=== PATIENT | male | born 1935 | race Hispanic/Latino ===

== ENCOUNTER 2017-11-25 22:39 | Emergency (ER) | payer OTHER, MEDICARE ==
[~2017-11-25 22:39] MED LIST: ACET1TAB25 PO; AMIO400T4 PO; METO50TA18 PO; RIVA20TA PO; SIMV40TA59 PO; THYR15TA PO; VALS1TAB79 PO
[2017-11-25] MEDS ORDERED: GUAIFENESIN-DM 200/20 MG 10 ML ONE (23:25)
[2017-11-25] MEDS ORDERED: SODIUM CHLORIDE 0.9% 1000ML 1,000 ML IV ONE (23:25)
[2017-11-25 23:31] LABS: BASOPHILS % (AUTO) 0.4 % (0.0-5.0); EOSINOPHILS % (AUTO) 0.5 % (0.0-8.0); HEMATOCRIT 36.5 % (42-54); LYMPHOCYTES % (AUTO) 8.2 % (21.0-51.0); MEAN CORPUSCULAR HEMOGLOBIN 30.7 pg (27.0-33.0); MEAN CORPUSCULAR HGB CONC 34.3 g/dL (32.0-36.0); MEAN CORPUSCULAR VOLUME 89.3 fL (79-99); MONOCYTES % (AUTO) 11.2 % (3.0-13.0); NEUTROPHILS % (AUTO) 79.7 % (40.0-77.0); PLATELET COUNT (AUTO) 186 K/uL (130-400); RED BLOOD CELL COUNT(AUTO) 4.08 MIL/uL (4.50-6.20); WHITE BLOOD COUNT (AUTO) 9.8 K/uL (4.8-10.8)
[2017-11-25 23:45] LABS: CREATININE 1.3 mg/dL (0.5-1.5); POTASSIUM 3.8 mmol/L (3.5-5.1)
[2017-11-25 23:56] LABS: ALBUMIN 3.1 g/dL (3.5-5.0); BILIRUBIN,TOTAL 0.9 mg/dL (0.2-1.0); TOTAL PROTEIN, SERUM 7.7 g/dL (6.0-8.3)
[2017-11-26] MEDS ORDERED: ALBUTEROL SULFATE 0.083% 2.5 MG/3 ML INH IH ONE (00:06)
[2017-11-26 00:18] LABS: THYROID STIMULATING HORMONE 3.77 uIU/mL (0.36-3.74)
== END 2017-11-26 01:48 | disposition home or self-care (01) ==
LOC: EDH 22:39
DX: R05 Cough (principal); R53.81 Other malaise; R53.83 Other fatigue; I48.92 Unspecified atrial flutter; E78.5 Hyperlipidemia, unspecified; E07.9 Disorder of thyroid, unspecified; I10 Essential (primary) hypertension; Z79.01 Long term (current) use of anticoagulants; Z87.891 Personal history of nicotine dependence
CPT/HCPCS: 36415; 71045; 80053; 82550; 83605; 83735; 83880; 84443; 84484; 85025; 87040 ×2; 87804 ×2; 93005; 94640; 96360; 96361; 99285; J7030

== ENCOUNTER → 2018-03-13 | Outpatient (CLI) | payer OTHER, MEDICARE | END | disposition home or self-care (01) | LOC: SHCH 13:58 | PROVIDERS: ATTEND Internal Medicine Cardiovascular Disease | DX: I37.1 Nonrheumatic pulmonary valve insufficiency (principal); I35.8 Other nonrheumatic aortic valve disorders | CPT/HCPCS: 93306 ==

== ENCOUNTER → 2018-04-03 | Outpatient (CLI) | payer OTHER, MEDICARE | END | disposition home or self-care (01) | LOC: SHCH 08:11 | PROVIDERS: ATTEND Internal Medicine Cardiovascular Disease | DX: I65.23 Occlusion and stenosis of bilateral carotid arteries (principal); I71.4 Abdominal aortic aneurysm, without rupture; R09.89 Other specified symptoms and signs involving the circulatory and respiratory systems | CPT/HCPCS: 93880; 93978 ==

== ENCOUNTER → 2019-05-14 | Outpatient (CLI) | payer OTHER, MEDICARE | END | disposition home or self-care (01) | LOC: RAH 11:23 | PROVIDERS: ATTEND Family Medicine | DX: M79.605 Pain in left leg (principal); M79.89 Other specified soft tissue disorders | CPT/HCPCS: 93971 ==

== ENCOUNTER → 2020-01-22 | Outpatient (CLI) | payer OTHER, MEDICARE ==
[~2020-01-22] MED LIST changes: -ACET1TAB25 PO; +AMOX-429 PO; +DONE5TAB33 PO; +FINA5TAB41 PO; +FURO20TA4 PO; +IPRA3AMP24 IH; +LEVO100T12 PO; +LISI-617 PO; +METO25TA6 PO; -METO50TA18 PO; +ROSU5TAB12 PO; -SIMV40TA59 PO; -THYR15TA PO; -VALS1TAB79 PO
== END | disposition home or self-care (01) ==
LOC: SHCH 08:16
PROVIDERS: ATTEND Internal Medicine Cardiovascular Disease
DX: R00.1 Bradycardia, unspecified (principal); R09.89 Other specified symptoms and signs involving the circulatory and respiratory systems; I71.4 Abdominal aortic aneurysm, without rupture
CPT/HCPCS: 93306; 93880; 93978

== ENCOUNTER 2020-01-24 21:36 | Inpatient (IN) | payer OTHER, MEDICARE ==
[~2020-01-24] VITALS: Ht 160 cm; Wt 58.0 kg
[2020-01-24 22:14] LABS: BASOPHILS % (AUTO) 0.1 % (0.0-5.0); EOSINOPHILS % (AUTO) 1.8 % (0.0-8.0); HEMATOCRIT 39.4 % (42-54); LYMPHOCYTES % (AUTO) 12.7 % (21.0-51.0); MEAN CORPUSCULAR HEMOGLOBIN 31.5 pg (27.0-33.0); MEAN CORPUSCULAR VOLUME 95.4 fL (79-99); MONOCYTES % (AUTO) 7.2 % (3.0-13.0); NEUTROPHILS % (AUTO) 77.9 % (40.0-77.0); PLATELET COUNT (AUTO) 145 K/uL (130-400); RED BLOOD CELL COUNT(AUTO) 4.13 MIL/uL (4.50-6.20); RED CELL DISTRIBUTION WIDTH 14.1 % (11.0-15.5); WHITE BLOOD COUNT (AUTO) 7.4 K/uL (4.8-10.8)
[2020-01-24 22:39] LABS: INR 1.71 (0.85-1.15); PARTIAL THROMBOPLASTIN TIME 39.9 SEC (26.3-35.5); PROTHROMBIN TIME 18.1 SEC (9.6-11.6)
[2020-01-24 22:41] LABS: B-TYPE NATRIURETIC PEPTIDE 1450 pg/mL (0-100)
[2020-01-24 22:46] LABS: ALBUMIN 3.1 g/dL (3.5-5.0); BILIRUBIN,TOTAL 0.7 mg/dL (0.2-1.0); CREATININE 1.2 mg/dL (0.5-1.5); TOTAL PROTEIN, SERUM 6.4 g/dL (6.0-8.3)
[2020-01-24 22:58] LABS: POTASSIUM 2.7 mmol/L (3.5-5.1)
[2020-01-24] MEDS ORDERED: POTASSIUM CHLORIDE 20 MEQ ERTAB PO ONE (23:13)
[2020-01-25 04:41] LABS: BASOPHILS % (AUTO) 0.1 % (0.0-5.0); HEMATOCRIT 40.4 % (42-54); LYMPHOCYTES % (AUTO) 12.7 % (21.0-51.0); MEAN CORPUSCULAR HEMOGLOBIN 31.6 pg (27.0-33.0); MEAN CORPUSCULAR HGB CONC 33.4 g/dL (32.0-36.0); MEAN CORPUSCULAR VOLUME 94.6 fL (79-99); MONOCYTES % (AUTO) 8.1 % (3.0-13.0); NEUTROPHILS % (AUTO) 76.8 % (40.0-77.0); PLATELET COUNT (AUTO) 132 K/uL (130-400); RED BLOOD CELL COUNT(AUTO) 4.27 MIL/uL (4.50-6.20); RED CELL DISTRIBUTION WIDTH 14.5 % (11.0-15.5); WHITE BLOOD COUNT (AUTO) 8.9 K/uL (4.8-10.8)
[2020-01-25 04:57] LABS: INR 1.45 (0.85-1.15); PARTIAL THROMBOPLASTIN TIME 36.4 SEC (26.3-35.5); PROTHROMBIN TIME 15.4 SEC (9.6-11.6)
[2020-01-25 06:04] LABS: ALBUMIN 2.9 g/dL (3.5-5.0); BILIRUBIN,TOTAL 0.7 mg/dL (0.2-1.0); CREATININE 1.1 mg/dL (0.5-1.5); MAGNESIUM 1.7 mg/dL (1.80-2.40); PHOSPHORUS 3.1 mg/dL (2.5-4.9); TOTAL PROTEIN, SERUM 6.7 g/dL (6.0-8.3)
[2020-01-25 06:06] LABS: POTASSIUM 2.7 mmol/L (3.5-5.1)
[2020-01-25] MEDS ORDERED: POTASSIUM CHLORIDE 20 MEQ ERTAB PO PRN (06:45)
[2020-01-25] MEDS ORDERED: LIDOCAINE HCL-MPF 1% 2ML VIAL IV PRN (06:45)
[2020-01-25] MEDS ORDERED: POTASSIUM CHLORIDE 20MEQ/100ML 100 ML IV PRN (06:45)
[2020-01-25] MEDS ORDERED: POTASSIUM CHLORIDE 10% ELIXIR 20 MEQ/15 ML UDCUP PO PRN (06:45)
[2020-01-25] MEDS ORDERED: LIDOCAINE HCL-MPF 1% 2ML VIAL ONE ×2 (08:13→15:21)
[2020-01-25] MEDS ORDERED: POTASSIUM CHLORIDE 20MEQ/100ML 100 ML IV ONE ×2 (08:13→15:21)
[2020-01-25] MEDS ORDERED: NITROGLYCERIN 0.4 MG SL TAB SL PRN (08:45)
[2020-01-25] MEDS ORDERED: ONDANSETRON HCL 4 MG/2 ML VIAL IV PRN (08:45)
[2020-01-25] MEDS ORDERED: LACTULOSE 20 GM/30 ML UDCUP PO PRN (08:45)
[2020-01-25] MEDS ORDERED: BENZONATATE 100 MG CAPSULE PO PRN (08:45)
[2020-01-25] MEDS ORDERED: ACETAMINOPHEN-CODEINE 300/30MG TAB PO PRN (08:45)
[2020-01-25] MEDS ORDERED: DEXTROSE 50%-WATER 50 ML DISP.SYRIN IV PRN (08:45)
[2020-01-25] MEDS: CEFTRIAXONE SODIUM 1 GM IV SCH (08:45)
[2020-01-25] MEDS ORDERED: HYDRALAZINE HCL 20 MG/ML VIAL IV PRN (08:45)
[2020-01-25] MEDS ORDERED: GUAIFENESIN-DM 200/20 MG 10 ML PO PRN (08:45)
[2020-01-25] MEDS ORDERED: ACETAMINOPHEN 325 MG TAB PO PRN ×2 (08:45)
[2020-01-25] MEDS ORDERED: DiphenhydrAMINE HCL 50 MG/ML VIAL IV PRN (08:45)
[2020-01-25] MEDS ORDERED: GLUCAGON 1MG KIT 1 MG ML IM PRN (08:45)
[2020-01-25] MEDS ORDERED: MAGNESIUM 2GM PREMIX 50ML 50 ML IV SCH (09:00)
[2020-01-25] MEDS: FUROSEMIDE 10 MG/ML 2ML VIAL IV SCH ×2 (09:00→20:26)
[2020-01-25] MEDS: FAMOTIDINE/PF 20 MG/2 ML VIAL IV SCH (09:00)
[2020-01-25] MEDS: POTASSIUM CHLORIDE 20 MEQ ERTAB PO SCH ×3 (09:00→20:35)
[2020-01-25] MEDS: IPRATROPIUM/ALBUTEROL SULFATE 3 ML SOLUTION IH SCH ×4 (10:00→21:54)
--- NOTE | 2020-01-25 10:18 | NUR ---
US GUIDED RIGHT THORACENTESIS PROCEDURE PERFORMED BY DR. STEVENS, PUNCUTURE SITE RIGHT UPPER POSTERIOR BACK AND PT TOLERATED PROCEDURE WELL. TOTAL REMOVED 1.6 LITERS END OF PROCEDURE AT 1000, CATHETER REMOVED AND VASALINE DRESSING APPLIED. NO BLEEDING NOTED .POST CHEST XRAY TAKEN AND READ BY DR. STEVENS. NO PNEUMOTHORAX SEEN. REPORT GIVEN TO Ravinder HOBSON RN IN ER. PT TRANSFERRED BACK TO ER VIA BED,NO DISTRESS NOTED. PT DENIED ANY PAIN OR DISCOMFORTS. SPECIMEN SEND TO LAB
--- NOTE | 2020-01-25 11:24 | NUR ---
INITIAL SW spoke with patient's daughter, Citlali Noel, [phone]. Patient lives with spouse, Ankita Vance, [phone]. Patient has no home health but does have PHC with [facility] 31 hours a week. DME: BPM, cane, wheelchair, goyo lift. As per daughter, patient requires assistance to complete ADL's and he does not drive. Family assist with transportation. PCP is Dr. Bc Salguero. Pharmacy is [facility] located on [facility] in [place]. DCP is home. Addendum: 01/25/20 at 1127 by MANUEL HERNANDEZ Amended: Links added.
[2020-01-25] MEDS ORDERED: FUROSEMIDE 10 MG/ML 2ML VIAL ONE (11:33)
[2020-01-25] MEDS ORDERED: POTASSIUM CHLORIDE 10% ELIXIR 20 MEQ/15 ML UDCUP ONE (11:33)
[2020-01-25] MEDS ORDERED: CEFTRIAXONE SODIUM 1 GM ONE (11:34)
[2020-01-25] MEDS ORDERED: FAMOTIDINE/PF 20 MG/2 ML VIAL IV ONE (11:34)
[2020-01-25] MEDS ORDERED: BENZONATATE 100 MG CAPSULE PO ONE (11:35)
[2020-01-25] MEDS ORDERED: IPRATROPIUM/ALBUTEROL SULFATE 3 ML SOLUTION IH ONE (13:13)
[2020-01-25 13:20] LABS: SPECIMENTYPE,BODY FLUID PLEURAL
[2020-01-25 13:21] LABS: APPEARANCE BODY FLUID SLIGHTLY CLOUDY (CLEAR); COLOR,BODY FLUID YELLOW (LT YELLOW); TOTAL VOLUME,BODY FLUID 1500 mL
[2020-01-25 13:22] LABS: BODY FLUID RBC 27 /cu. mm.; BODY FLUID WBC 53 /cu. mm.
[2020-01-25 14:16] LABS: BF LYMPHOCYTE 26 %; BF MONOCYTE 55 %
[2020-01-25] MEDS ORDERED: LEVOTHYROXINE 100 MCG TABLET ONE (16:00)
[2020-01-25] MEDS: INSULIN HUMULIN R 100 UNIT/ML 3ML SQ SCH ×2 (16:30→21:00)
[2020-01-25 18:10] VITALS: BP 140/81
[2020-01-25 20:08] VITALS: BP 149/74
[2020-01-25] MEDS ORDERED: ATORVASTATIN CALCIUM 10 MG TABLET PO SCH (21:00)
[2020-01-25] MEDS ORDERED: FINASTERIDE 5 MG TABLET PO SCH (21:00)
[2020-01-25] MEDS ORDERED: DONEPEZIL HCL 5 MG TAB PO SCH (21:00)
[2020-01-25 23:36] VITALS: BP 148/82
[2020-01-26] MEDS: IPRATROPIUM/ALBUTEROL SULFATE 3 ML SOLUTION IH SCH ×4 (02:01→15:18)
[2020-01-26 03:56] VITALS: BP_SYST 149; BP_SYST 168; BP_DIAS 77; BP_DIAS 89
[2020-01-26 04:06] LABS: HEMATOCRIT 39.8 % (42-54); MEAN CORPUSCULAR HEMOGLOBIN 31.8 pg (27.0-33.0); MEAN CORPUSCULAR HGB CONC 32.2 g/dL (32.0-36.0); MEAN CORPUSCULAR VOLUME 98.8 fL (79-99); PLATELET COUNT (AUTO) 118 K/uL (130-400); RED BLOOD CELL COUNT(AUTO) 4.03 MIL/uL (4.50-6.20); RED CELL DISTRIBUTION WIDTH 14.2 % (11.0-15.5); WHITE BLOOD COUNT (AUTO) 7.3 K/uL (4.8-10.8)
[2020-01-26 04:37] LABS: MAGNESIUM 1.7 mg/dL (1.80-2.40); PHOSPHORUS 2.6 mg/dL (2.5-4.9); POTASSIUM 3.8 mmol/L (3.5-5.1)
[2020-01-26] MEDS: INSULIN HUMULIN R 100 UNIT/ML 3ML SQ SCH ×2 (06:21→11:30)
[2020-01-26] MEDS ORDERED: LEVOTHYROXINE 100 MCG TABLET PO SCH (06:30)
[2020-01-26] MEDS: FUROSEMIDE 10 MG/ML 2ML VIAL IV SCH (08:03)
[2020-01-26] MEDS: FAMOTIDINE/PF 20 MG/2 ML VIAL IV SCH (08:03)
[2020-01-26] MEDS: CEFTRIAXONE SODIUM 1 GM IV SCH (08:03)
[2020-01-26 08:19] VITALS: BP 130/62
--- NOTE | 2020-01-26 08:20 | NUR ---
ASSESSMENT PT IS RESTING IN BED. BREATHING PATTERN IS EVEN AND UNLABORED. NO VISIBLE SIGNS OF DISTRESS NOTED. HOB UP AT 30 DEGREES, DAUGHTER CALLED AND UPDATES GIVEN. CALL LIGHT WITHIN REACH.
[2020-01-26] MEDS ORDERED: ENOXAPARIN SODIUM 40 MG/0.4 ML SYRINGE SQ SCH (09:00)
[2020-01-26] MEDS ORDERED: METOPROLOL TARTRATE 50 MG TAB PO SCH (09:00)
[2020-01-26] MEDS ORDERED: AMIODARONE HCL 200 MG TABLET PO SCH (09:00)
[2020-01-26] MEDS ORDERED: RIVAROXABAN 20 MG TABLET PO SCH (09:00)
[2020-01-26 11:29] VITALS: BP 139/66
[2020-01-26 15:26] VITALS: BP 120/50
--- NOTE | 2020-01-26 15:57 | NUR ---
DC INSTRUCTIONS GIVEN TO PATIENT AND DAUGHTER RENE OVER THE PHONE. AGREE TO INSTRUCTION AND AGREE TO FOLLOW THEM.
--- NOTE | 2020-01-26 16:05 | NUR ---
DISCHARGE PIV REMOVED CATH TIP INTACT, TELE PACK REMOVED.
== END 2020-01-26 16:44 | disposition home or self-care (01) | DRG 292 ==
LOC: EDH 21:36 → EDHIP 22:55 → 2AH 01-25 18:12
PROVIDERS: ADMIT Internal Medicine; ATTEND Internal Medicine
PROC: 0W993ZZ Drainage of Right Pleural Cavity, Percutaneous Approach (ICD-10-PCS; principal; 2020-01-25)
DX: I50.43 Acute on chronic combined systolic (congestive) and diastolic (congestive) heart failure (principal); J44.1 Chronic obstructive pulmonary disease with (acute) exacerbation; R64 Cachexia; I44.0 Atrioventricular block, first degree; E87.6 Hypokalemia; E83.42 Hypomagnesemia; R74.8 Abnormal levels of other serum enzymes; Z99.3 Dependence on wheelchair; Z68.22 Body mass index [BMI] 22.0-22.9, adult; E03.9 Hypothyroidism, unspecified; E78.5 Hyperlipidemia, unspecified; F01.50 Vascular dementia, unspecified severity, without behavioral disturbance, psychotic disturbance, mood disturbance, and anxiety; I25.10 Atherosclerotic heart disease of native coronary artery without angina pectoris; I48.91 Unspecified atrial fibrillation; Z96.653 Presence of artificial knee joint, bilateral; I73.9 Peripheral vascular disease, unspecified; N18.9 Chronic kidney disease, unspecified; Z79.01 Long term (current) use of anticoagulants; Z79.899 Other long term (current) drug therapy; Z86.73 Personal history of transient ischemic attack (TIA), and cerebral infarction without residual deficits; Z87.891 Personal history of nicotine dependence; Z99.81 Dependence on supplemental oxygen
CPT/HCPCS: 32555; 36415; 71045; 80048; 80053; 82550; 82945; 82948; 83615; 83735; 83880; 83986; 84100; 84132; 84157; 84484; 85025; 85027; 85610; 85730; 87071; 87116; 87205; 87206; 89051; 93005; 94640; 94664; G0378; J0696; J1650; J1940; J3475; J3480; J3490

== ENCOUNTER 2020-02-12 07:35 | Observation (INO) | payer OTHER, MEDICARE ==
[2020-02-12] VITALS (9 sets, daily range): BP systolic 116–160; BP diastolic 61–93
[~2020-02-12] VITALS: Ht 154.9 cm; Wt 54.9 kg
[2020-02-12 08:56] LABS: BASOPHILS % (AUTO) 0.1 % (0.0-5.0); EOSINOPHILS % (AUTO) 0.1 % (0.0-8.0); HEMATOCRIT 38.2 % (42-54); LYMPHOCYTES % (AUTO) 5.3 % (21.0-51.0); MEAN CORPUSCULAR HEMOGLOBIN 31.3 pg (27.0-33.0); MEAN CORPUSCULAR HGB CONC 31.9 g/dL (32.0-36.0); MEAN CORPUSCULAR VOLUME 97.9 fL (79-99); MONOCYTES % (AUTO) 7.4 % (3.0-13.0); NEUTROPHILS % (AUTO) 86.6 % (40.0-77.0); PLATELET COUNT (AUTO) 153 K/uL (130-400); RED CELL DISTRIBUTION WIDTH 14.5 % (11.0-15.5); WHITE BLOOD COUNT (AUTO) 8.4 K/uL (4.8-10.8)
[2020-02-12 09:06] LABS: CREATININE 1.2 mg/dL (0.5-1.5); POTASSIUM 3.7 mmol/L (3.5-5.1)
[2020-02-12 09:07] LABS: INR 1.36 (0.85-1.15); PARTIAL THROMBOPLASTIN TIME 35.1 SEC (26.3-35.5); PROTHROMBIN TIME 14.5 SEC (9.6-11.6)
[2020-02-12 09:15] LABS: ALBUMIN 3.2 g/dL (3.5-5.0); BILIRUBIN,TOTAL 0.8 mg/dL (0.2-1.0); TOTAL PROTEIN, SERUM 7.3 g/dL (6.0-8.3)
[2020-02-12 09:23] LABS: B-TYPE NATRIURETIC PEPTIDE 3050 pg/mL (0-100)
--- NOTE | 2020-02-12 11:00 | NUR ---
U/S GUIDED RIGHT THORACENTESIS PROCEDURE PERFORMED BY DR. MALAGON. PUNCTURE SITE RIGHT POSTERIOR LATERAL BACK AND PATIENT TOLERATED PROCEDURE WELL. TOTAL REMOVED 2.0 LITERS OF CLEAR YELLOW PLEURAL FLUID. END OF PROCEDURE AT 1110. CATHETER REMOVED AND DRESSING APPLIED. NO BLEEDING NOTED. POST CHEST X-RAY DONE TO BE READ BY DR. MALAGON. CALLED REPORT TO JOSE ANGEL PARTIDA. PATIENT TRANSPORTED TO ED VIA STRETCHER AT 1130. PT STABLE, AAO X3 WITH NO C/O PAIN.
[2020-02-12] MEDS ORDERED: HYDROCODONE/ACETAMINOPHEN 5/325 MG TAB PO PRN (13:30)
[2020-02-12] MEDS ORDERED: DIPHENHYDRAMINE HCL 25 MG CAPSULE PO PRN (13:30)
[2020-02-12] MEDS ORDERED: ZOLPIDEM TARTRATE 5 MG TAB PO PRN (13:30)
[2020-02-12] MEDS ORDERED: HYDRALAZINE HCL 20 MG/ML VIAL IV PRN (13:30)
[2020-02-12] MEDS ORDERED: IPRATROPIUM/ALBUTEROL SULFATE 3 ML SOLUTION IH PRN (13:30)
[2020-02-12] MEDS ORDERED: ONDANSETRON HCL 4 MG/2 ML VIAL IVP PRN (13:30)
[2020-02-12] MEDS ORDERED: MAG HYDROX/AL HYDROX/SIMETH ES 30 ML SUSP UDCUP PO PRN (13:30)
[2020-02-12] MEDS ORDERED: ONDANSETRON HCL 4 MG/2 ML VIAL IV PRN (13:30)
[2020-02-12] MEDS ORDERED: NITROGLYCERIN 0.4 MG SL TAB SL PRN (13:30)
[2020-02-12] MEDS ORDERED: FUROSEMIDE 10 MG/ML 4ML VIAL IV SCH (13:30)
[2020-02-12] MEDS ORDERED: LACTULOSE 20 GM/30 ML UDCUP PO PRN (13:30)
[2020-02-12] MEDS ORDERED: ACETAMINOPHEN 325 MG TAB PO PRN ×2 (13:30)
[2020-02-12] MEDS ORDERED: FURO20TA6 PO (17:41)
[2020-02-12] MEDS: HYDROMORPHONE 1 MG/1 ML AMP IV PRN ×2 (19:35→22:59)
[2020-02-13] MEDS: HYDROMORPHONE 1 MG/1 ML AMP IV PRN (03:04)
[2020-02-13 03:59] VITALS: BP 146/79
[2020-02-13 05:29] LABS: BASOPHILS % (AUTO) 0.2 % (0.0-5.0); EOSINOPHILS % (AUTO) 0.5 % (0.0-8.0); HEMATOCRIT 33.3 % (42-54); MEAN CORPUSCULAR HEMOGLOBIN 30.7 pg (27.0-33.0); MEAN CORPUSCULAR HGB CONC 32.1 g/dL (32.0-36.0); MEAN CORPUSCULAR VOLUME 95.7 fL (79-99); NEUTROPHILS % (AUTO) 79.8 % (40.0-77.0); PLATELET COUNT (AUTO) 129 K/uL (130-400); RED BLOOD CELL COUNT(AUTO) 3.48 MIL/uL (4.50-6.20); RED CELL DISTRIBUTION WIDTH 14.6 % (11.0-15.5)
[2020-02-13 06:00] LABS: CREATININE 1.1 mg/dL (0.5-1.5); POTASSIUM 3.2 mmol/L (3.5-5.1); THYROID STIMULATING HORMONE 13.2 uIU/mL (0.36-3.74)
[2020-02-13 07:30] VITALS: BP 142/71
[2020-02-13] MEDS ORDERED: LIDOCAINE HCL-MPF 1% 2ML VIAL IV PRN (07:30)
[2020-02-13] MEDS ORDERED: POTASSIUM CHLORIDE 20MEQ/100ML 100 ML IV PRN (07:30)
[2020-02-13] MEDS ORDERED: POTASSIUM CHLORIDE 10% ELIXIR 20 MEQ/15 ML UDCUP PO PRN (07:30)
[2020-02-13] MEDS ORDERED: POTASSIUM CHLORIDE 20 MEQ ERTAB PO PRN (07:30)
[2020-02-13] MEDS ORDERED: LISINOPRIL 10 MG TABLET PO SCH (09:00)
[2020-02-13] MEDS ORDERED: LISINOPRIL 20 MG TABLET PO SCH (09:00)
[2020-02-13] MEDS ORDERED: PANTOPRAZOLE 40 MG/VIAL IVP SCH (09:00)
[2020-02-13] MEDS ORDERED: FAMOTIDINE/PF 20 MG/2 ML VIAL IV SCH (09:00)
[2020-02-13] MEDS ORDERED: FUROSEMIDE 40 MG TABLET PO SCH (09:00)
[2020-02-13] MEDS ORDERED: FURO40TA7 PO (10:46)
[2020-02-13] MEDS ORDERED: LISI-613 PO (10:46)
[2020-02-13 11:00] VITALS: BP 124/58
--- NOTE | 2020-02-13 11:12 | NUR ---
[facility] CM spoke to pt's daughter Citlali Noel discussed dc plans. Per daughter pt is assist with ADL's, lives at home with spouse, daughter lives close by. Pt has a provider 31hrs/wk, cane, wheelchair, goyo lift if needed. Denies any other equipments/services. Feels safe to go back home, daughter able to assist with transportation and needs as necessary. Declined placement at this time. DC plan to home once stable. CM to cont to follow up. Addendum: 02/13/20 at 1114 by LAURA RODRIGUEZ LVN CM Amended: Links added.
--- NOTE | 2020-02-13 14:57 | NUR ---
PATIENT DISCHARGE PATIENT DISCHARGED, IV DISCONTINUED, CATHLON INTACT, BLEEDING CONTROLLED, PATIENT TOLERATED WITHOUT INCIDENT. TELE REMOVED AND RETURNED. DISCUSSED DISCHARGED PLAN WITH DAUGHTER RENE ENG BY PHONE, ADVISED OF TWO APPOINTMENTS FOR FOLLOW UP, ONE WITH DR. RANKIN ON 02/[address] ANSLEY CIFUENTES, THEY WILL CALL WITH APPOINTMENT. ADVISED OF TWO NEW PRES[facility] [address] AND COVERED MED REC WITH NEW MEDICATIONS AND WHAT MEDICATIONS TO STOP. RENE STATED SHE UNDERSTOOD.
== END 2020-02-13 16:30 | disposition home or self-care (01) ==
LOC: EDH 07:35 → EDHIP 12:08 → 3DH 13:48
PROVIDERS: ADMIT Internal Medicine Critical Care Medicine; ATTEND Internal Medicine Critical Care Medicine
DX: I11.0 Hypertensive heart disease with heart failure (principal); I50.43 Acute on chronic combined systolic (congestive) and diastolic (congestive) heart failure; J90 Pleural effusion, not elsewhere classified; J44.1 Chronic obstructive pulmonary disease with (acute) exacerbation; E87.6 Hypokalemia; E03.9 Hypothyroidism, unspecified; E83.42 Hypomagnesemia; F01.50 Vascular dementia, unspecified severity, without behavioral disturbance, psychotic disturbance, mood disturbance, and anxiety; I25.10 Atherosclerotic heart disease of native coronary artery without angina pectoris; I48.0 Paroxysmal atrial fibrillation; I71.4 Abdominal aortic aneurysm, without rupture; Z79.01 Long term (current) use of anticoagulants; Z79.899 Other long term (current) drug therapy; Z86.73 Personal history of transient ischemic attack (TIA), and cerebral infarction without residual deficits; Z87.891 Personal history of nicotine dependence; Z99.3 Dependence on wheelchair
CPT/HCPCS: 32555; 36415 ×2; 71045 ×3; 80048; 80053; 82550; 83605; 83880; 84443; 84484; 85025 ×2; 85610; 85730; 93005; 94664; 96374; 96375; 96376 ×2; 99285; A4215; G0378 ×13; J1170 ×3; J3490; C9113

== ENCOUNTER → 2020-03-07 | Outpatient (CLI) | payer OTHER, MEDICARE ==
--- NOTE | 2020-03-04 10:44 | NUR ---
PT WAS R/S FOR ANOTHER DOS
[~2020-03-07] MED LIST changes: -AMOX-429 PO; -FURO20TA4 PO; +FURO40TA7 PO; -IPRA3AMP24 IH; +LISI-613 PO; -LISI-617 PO; -METO25TA6 PO; +REGADENOSON 0.4 MG/5 ML PF SYG IVP SCH
== END | disposition home or self-care (01) ==
LOC: SHCH 09:35
PROVIDERS: ATTEND Internal Medicine Cardiovascular Disease
DX: I10 Essential (primary) hypertension (principal); I48.0 Paroxysmal atrial fibrillation
CPT/HCPCS: 78452; 93017; 96374; A9500 ×2; J2785

== ENCOUNTER 2020-04-08 09:16 | Inpatient (IN) | payer OTHER, MEDICARE ==
[~2020-04-08] VITALS: Ht 177.8 cm; Wt 60.9 kg
[~2020-04-08 09:16] MED LIST changes: -REGADENOSON 0.4 MG/5 ML PF SYG IVP SCH
[2020-04-08 09:49] LABS: CARBON DIOXIDE 30 mmol/L (21-32); CHLORIDE 105 mmol/L (101-111); CREATININE 1.1 mg/dL (0.5-1.5); GLOMERULAR FILTR. RATE CALC 68 mL/min (>60); GLUCOSE,RANDOM 243 mg/dL (70-105); POTASSIUM 3.3 mmol/L (3.5-5.1); SODIUM SERUM 143 mmol/L (136-145); UREA NITROGEN, BLOOD 21 mg/dL (7-18)
[2020-04-08 09:53] LABS: BASOPHILS % (AUTO) 0.1 % (0.0-5.0); EOSINOPHILS % (AUTO) 2.5 % (0.0-8.0); LYMPHOCYTES % (AUTO) 11.4 % (21.0-51.0); MEAN CORPUSCULAR HGB CONC 31.5 g/dL (32.0-36.0); MEAN CORPUSCULAR VOLUME 98.3 fL (79-99); MONOCYTES % (AUTO) 6.2 % (3.0-13.0); NEUTROPHILS % (AUTO) 79.4 % (40.0-77.0); PLATELET COUNT (AUTO) 169 K/uL (130-400); RED BLOOD CELL COUNT(AUTO) 4.07 MIL/uL (4.50-6.20); RED CELL DISTRIBUTION WIDTH 14.3 % (11.0-15.5); WHITE BLOOD COUNT (AUTO) 10.2 K/uL (4.8-10.8)
[2020-04-08 09:59] LABS: INR 1.05 (0.85-1.15); PARTIAL THROMBOPLASTIN TIME 23.8 SEC (26.3-35.5); PROTHROMBIN TIME 11.3 SEC (9.6-11.6)
[2020-04-08 10:00] LABS: ALANINE AMINOTRANSFERASE 59 U/L (12-78); ALBUMIN 3.3 g/dL (3.5-5.0); ASPARTATE AMINOTRANSFERASE 69 U/L (10-37); BILIRUBIN,TOTAL 0.5 mg/dL (0.2-1.0); CREATINE KINASE, TOTAL 59 U/L (21-232); MYOGLOBIN 35 ng/mL (10-92); TOTAL PROTEIN, SERUM 7.6 g/dL (6.0-8.3); TROPONIN I < 0.04 ng/mL (0.00-0.06)
--- NOTE | 2020-04-08 12:44 | NUR ---
RE: THORACENTESIS PATIENT IN ISOLATION AND BEING TESTED FOR COVID-19. DR Bella CRUZ AND DR Edin MALAGON NOTIFIED OF PROCEDURE AND PATIENT STATUS. PROCEDURE CANCELED BY RADIOLOGISTS AND REFER PROCEDURE TO BRAKE LINING FINISHER. JOSE ANGEL MANUEL NOTIFIED OF PROCEDURE OUTCOME.
[2020-04-08 15:00] VITALS: BP 153/79
[2020-04-08] MEDS ORDERED: LISI-617 PO (16:00)
[2020-04-08] MEDS ORDERED: FURO20TA6 PO (16:00)
[2020-04-08] MEDS ORDERED: AMIO200T6 PO (16:00)
[2020-04-08] MEDS ORDERED: ACETAMINOPHEN 325 MG TAB PO PRN (17:15)
[2020-04-08] MEDS ORDERED: ACETAMINOPHEN-CODEINE 300/30MG TAB PO PRN (17:15)
[2020-04-08] MEDS ORDERED: ZOLPIDEM TARTRATE 5 MG TAB PO PRN (17:15)
[2020-04-08] MEDS ORDERED: HYDRALAZINE HCL 20 MG/ML VIAL IV PRN (17:15)
[2020-04-08] MEDS ORDERED: ONDANSETRON HCL 4 MG/2 ML VIAL IVP PRN (17:15)
[2020-04-08] MEDS: FUROSEMIDE 10 MG/ML 4ML VIAL IV SCH (17:53)
[2020-04-08] MEDS: POTASSIUM CHLORIDE 20 MEQ ERTAB PO PRN (18:18)
[2020-04-08 20:02] VITALS: BP 127/69
[2020-04-08] MEDS: DONEPEZIL HCL 5 MG TAB PO SCH (20:10)
[2020-04-08] MEDS: FINASTERIDE 5 MG TABLET PO SCH (20:10)
[2020-04-08] MEDS: LISINOPRIL 5 MG TABLET PO SCH (20:11)
--- NOTE | 2020-04-08 20:30 | NUR ---
PATIENTS HEART RATE ON THE MONITOR IS SINUS DAILY IN THE 50'S PER MANAGER OF MARKETING, PT IS STABLE NO COMPLAINS OF BEING IN DISTRESS, WILL MONITOR
[2020-04-08 23:51] VITALS: BP 153/86
[2020-04-09 03:21] VITALS: BP 136/71
[2020-04-09 04:09] LABS: HEMATOCRIT 34.9 % (42-54); MEAN CORPUSCULAR HEMOGLOBIN 31.4 pg (27.0-33.0); MEAN CORPUSCULAR HGB CONC 32.1 g/dL (32.0-36.0); MEAN CORPUSCULAR VOLUME 97.8 fL (79-99); RED BLOOD CELL COUNT(AUTO) 3.57 MIL/uL (4.50-6.20); RED CELL DISTRIBUTION WIDTH 14.2 % (11.0-15.5); WHITE BLOOD COUNT (AUTO) 6.6 K/uL (4.8-10.8)
[2020-04-09 04:23] LABS: INR 1.09 (0.85-1.15); PARTIAL THROMBOPLASTIN TIME 27.3 SEC (26.3-35.5); PROTHROMBIN TIME 11.7 SEC (9.6-11.6)
[2020-04-09 04:27] LABS: POTASSIUM 3.2 mmol/L (3.5-5.1)
[2020-04-09] MEDS: FUROSEMIDE 10 MG/ML 4ML VIAL IV SCH ×2 (06:09→17:59)
[2020-04-09] MEDS: LEVOTHYROXINE 100 MCG TABLET PO SCH (06:09)
[2020-04-09] MEDS: POTASSIUM CHLORIDE 10% ELIXIR 20 MEQ/15 ML UDCUP PO PRN ×2 (06:14→06:15)
[2020-04-09] MEDS ORDERED: LIDOCAINE HCL-MPF 1% 2ML VIAL IV PRN (07:15)
[2020-04-09] MEDS ORDERED: DEXTROSE 50%-WATER 50 ML DISP.SYRIN IV PRN (07:15)
[2020-04-09] MEDS ORDERED: GLUCAGON 1MG KIT 1 MG ML IM PRN (07:15)
[2020-04-09] MEDS ORDERED: POTASSIUM CHLORIDE 20MEQ/100ML 100 ML IV PRN (07:15)
[2020-04-09] MEDS: INSULIN HUMULIN R 100 UNIT/ML 3ML SQ SCH ×3 (07:30→16:30)
--- NOTE | 2020-04-09 08:00 | NUR ---
ENCOUNTERED PATIENT ON BED WITH NO C/O SOB NOR PAIN. REPORTED, PATIENT IS STILL TO R/O FOR COVID-19. AWAITING RESULTS. MAINTAINED ENHANCED PRECAUTIONS. PATIENT IS ON 2L O2 PER N/C. HE VOICED THAT HE IS UPSET THAT I DID NOT SEE HIM ALL DAY YESTERDAY UNTIL THIS MORNING. I INFORMED PATIENT THAT I WAS NOT HERE YESTERDAY AND WOULD HAVE BEEN IMPOSSIBLE FOR ME TO SEE HIM. I LET HIM KNOW THAT I WILL BE HIS NURSE TODAY UNTIL 7PM AND HE CAN CALL WHEN HE NEEDS ASSISTANCE. CALL LIGHT WITHIN REACH. HE VERBALIZED UNDERSTANDING.
[2020-04-09] MEDS: AMIODARONE HCL 200 MG TABLET PO SCH (08:03)
[2020-04-09] MEDS: ATORVASTATIN CALCIUM 10 MG TABLET PO SCH (08:03)
[2020-04-09] MEDS: PANTOPRAZOLE SODIUM 40 MG TABLET.DR PO SCH (08:03)
[2020-04-09 08:30] VITALS: BP 141/83
--- NOTE | 2020-04-09 08:30 | NUR ---
REVIEWED LAB RESULTS. COVID-19 RESULTS CAME BACK YESTERDAY MORNING AND SHOWED NEGATIVE.
[2020-04-09] MEDS ORDERED: FUROSEMIDE 20 MG TABLET PO SCH (09:00)
[2020-04-09 12:30] VITALS: BP 145/73
[2020-04-09 16:30] VITALS: BP 137/74
[2020-04-09] MEDS: POTASSIUM CHLORIDE 20 MEQ ERTAB PO PRN (17:56)
--- NOTE | 2020-04-09 18:16 | NUR ---
CMNOTE/IA UNSUCCESSFUL PATIENT IN COVID UNIT, UNABLE TO COMPLETE IA, CM TO FOLLOW UP. Addendum: 04/11/20 at 1817 by HAYDE BURCIAGA RN CM Amended: Links added.
[2020-04-09] MEDS: LISINOPRIL 5 MG TABLET PO SCH (19:54)
[2020-04-09] MEDS: FINASTERIDE 5 MG TABLET PO SCH (19:54)
[2020-04-09] MEDS: DONEPEZIL HCL 5 MG TAB PO SCH (19:54)
[2020-04-09 20:00] VITALS: BP 112/68
[2020-04-09] MEDS ORDERED: INSULIN HUMULIN R 100 UNIT/ML 3ML SQ SCH (21:00)
[2020-04-09 23:20] VITALS: BP 114/59
[2020-04-10 04:19] VITALS: BP 125/63
[2020-04-10] MEDS: FUROSEMIDE 10 MG/ML 4ML VIAL IV SCH ×2 (05:15→17:43)
[2020-04-10 05:21] LABS: HEMATOCRIT 35.3 % (42-54); MEAN CORPUSCULAR HEMOGLOBIN 30.8 pg (27.0-33.0); MEAN CORPUSCULAR HGB CONC 31.7 g/dL (32.0-36.0); RED BLOOD CELL COUNT(AUTO) 3.64 MIL/uL (4.50-6.20)
[2020-04-10 05:39] LABS: CREATININE 1.3 mg/dL (0.5-1.5)
[2020-04-10 05:40] LABS: POTASSIUM 2.9 mmol/L (3.5-5.1)
[2020-04-10] MEDS: LEVOTHYROXINE 100 MCG TABLET PO SCH (05:40)
[2020-04-10] MEDS: LIDOCAINE HCL-MPF 1% 2ML VIAL IV PRN ×2 (05:45→08:19)
[2020-04-10] MEDS: POTASSIUM CHLORIDE 20MEQ/100ML 100 ML IV PRN ×2 (05:45→08:19)
[2020-04-10] MEDS: AMIODARONE HCL 200 MG TABLET PO SCH (08:19)
[2020-04-10] MEDS: PANTOPRAZOLE SODIUM 40 MG TABLET.DR PO SCH (08:19)
[2020-04-10] MEDS: ATORVASTATIN CALCIUM 10 MG TABLET PO SCH (08:19)
[2020-04-10 08:55] VITALS: BP 129/80
[2020-04-10] MEDS ORDERED: POLYETHYLENE GLYCOL 3350 17 GM POWD.PACK PO SCH (11:30)
[2020-04-10 12:56] VITALS: BP 123/57
[2020-04-10 16:30] VITALS: BP 144/76
[2020-04-10] MEDS: LISINOPRIL 5 MG TABLET PO SCH (19:43)
[2020-04-10] MEDS: DONEPEZIL HCL 5 MG TAB PO SCH (19:43)
[2020-04-10] MEDS: FINASTERIDE 5 MG TABLET PO SCH (19:43)
--- NOTE | 2020-04-10 20:00 | NUR ---
REPORT CALLED AND GIVEN TO CINDY WALTER AT THIS TIME. PATIENT STABLE, DENIES HAVING ANY DISCOMFORT.
[2020-04-10 20:30] VITALS: BP 115/79
--- NOTE | 2020-04-10 21:00 | NUR ---
patient received from jennifer WALTER.patient is aaox3. denies pain or discomfort. reoriented to room and how to use call light. call light and belonging within reach. ,
[2020-04-10 23:00] VITALS: BP 113/60
[2020-04-11 03:00] VITALS: BP 92/50
[2020-04-11 03:47] LABS: MEAN CORPUSCULAR HEMOGLOBIN 30.9 pg (27.0-33.0); MEAN CORPUSCULAR HGB CONC 32.5 g/dL (32.0-36.0); RED BLOOD CELL COUNT(AUTO) 3.79 MIL/uL (4.50-6.20); RED CELL DISTRIBUTION WIDTH 14.2 % (11.0-15.5); WHITE BLOOD COUNT (AUTO) 6.4 K/uL (4.8-10.8)
[2020-04-11 04:03] LABS: CREATININE 1.1 mg/dL (0.5-1.5); POTASSIUM 3.6 mmol/L (3.5-5.1)
[2020-04-11 04:05] LABS: INR 1.03 (0.85-1.15); PARTIAL THROMBOPLASTIN TIME 26.7 SEC (26.3-35.5); PROTHROMBIN TIME 11.1 SEC (9.6-11.6)
[2020-04-11] MEDS: LEVOTHYROXINE 100 MCG TABLET PO SCH (06:50)
[2020-04-11] MEDS: FUROSEMIDE 10 MG/ML 4ML VIAL IV SCH ×2 (06:50→18:01)
[2020-04-11 08:30] VITALS: BP 128/71
[2020-04-11] MEDS: DOCUSATE SODIUM 100 MG CAP PO SCH (09:32)
[2020-04-11] MEDS: ATORVASTATIN CALCIUM 10 MG TABLET PO SCH (09:32)
[2020-04-11] MEDS: PANTOPRAZOLE SODIUM 40 MG TABLET.DR PO SCH (09:33)
[2020-04-11] MEDS: AMIODARONE HCL 200 MG TABLET PO SCH (09:33)
[2020-04-11 12:03] VITALS: BP 125/63
--- NOTE | 2020-04-11 12:45 | NUR ---
U/S GD RT THORACENTESIS PROCEDURE PERFORMED BY DR Bella CRUZ. PUNCTURE SITE RT POSTERIOR BACK AND PATIENT TOLERATED PROCEDURE WELL. TOTAL REMOVED 2 LITERS OF CLEAR YELLOW FLUID. END OF PROCEDURE AT 1225. CATHETER REMOVED AND DRESSING APPLIED. NO BLEEDING NOTED. POST CHEST X-RAY TAKEN AND READ BY DR Bella CRUZ. SMALL PNEUMOTHORAX SEEN AND REPEAT CHEST X-RAY ORDERED FOR 1500. REPORT GIVEN TO Ravinder HUNTLEY RN AND PATIENT TRANSPORTED TO [facility] VIA BED AT 1245. AAO X3 WITH NO C/O PAIN.
[2020-04-11 15:20] VITALS: BP 119/66
--- NOTE | 2020-04-11 15:56 | NUR ---
1218 patient signed IM Letter, I faxed IM Letter to [phone] and placed in chart under consent tab.
[2020-04-11 17:07] LABS: TOTAL PROTEIN, SERUM 6.9 g/dL (6.0-8.3)
--- NOTE | 2020-04-11 18:18 | NUR ---
CM NOTE/IA MEET WITH PATIENT IN ROOM. PER PATIENT, LIVES WITH SPOUSE, IS SEMI INDEPENDENT WITH ADLS, HAS PROVIDER DAILY BUT UNSURE OF HOW MANY HOURS, HAS SHOWER CHAIR AND WC IN USE AND FEELS SAFE TO RETURN HOME ONCE DISCHARGED FROM HOSPITAL. Addendum: 04/11/20 at 1819 by HAYDE BURCIAGA RN CM Amended: Links added.
[2020-04-11] MEDS ORDERED: LACTULOSE 20 GM/30 ML UDCUP ONE (18:29)
[2020-04-11] MEDS ORDERED: LACTULOSE 20 GM/30 ML UDCUP PO PRN (18:30)
[2020-04-11 20:00] VITALS: BP 98/52
[2020-04-11] MEDS: LISINOPRIL 5 MG TABLET PO SCH (20:51)
[2020-04-11] MEDS: FINASTERIDE 5 MG TABLET PO SCH (20:51)
[2020-04-11] MEDS: DONEPEZIL HCL 5 MG TAB PO SCH (20:51)
[2020-04-12] VITALS: BP 108/58
[2020-04-12 04:00] VITALS: BP 127/61
[2020-04-12 04:09] LABS: HEMATOCRIT 34.2 % (42-54); MEAN CORPUSCULAR HEMOGLOBIN 31.2 pg (27.0-33.0); MEAN CORPUSCULAR HGB CONC 32.7 g/dL (32.0-36.0); MEAN CORPUSCULAR VOLUME 95.3 fL (79-99); RED BLOOD CELL COUNT(AUTO) 3.59 MIL/uL (4.50-6.20); WHITE BLOOD COUNT (AUTO) 6.2 K/uL (4.8-10.8)
[2020-04-12] MEDS: FUROSEMIDE 10 MG/ML 4ML VIAL IV SCH (04:19)
[2020-04-12 04:21] LABS: CREATININE 1.2 mg/dL (0.5-1.5); POTASSIUM 3.4 mmol/L (3.5-5.1)
[2020-04-12] MEDS: POTASSIUM CHLORIDE 20 MEQ ERTAB PO PRN ×2 (05:37→08:10)
[2020-04-12] MEDS: LEVOTHYROXINE 100 MCG TABLET PO SCH (05:37)
[2020-04-12 07:00] VITALS: BP 116/74
[2020-04-12] MEDS: DOCUSATE SODIUM 100 MG CAP PO SCH (08:09)
[2020-04-12] MEDS: AMIODARONE HCL 200 MG TABLET PO SCH (08:09)
[2020-04-12] MEDS: ATORVASTATIN CALCIUM 10 MG TABLET PO SCH (08:09)
[2020-04-12] MEDS: PANTOPRAZOLE SODIUM 40 MG TABLET.DR PO SCH (08:09)
[2020-04-12 11:00] VITALS: BP 101/45
== END 2020-04-12 14:55 | disposition home or self-care (01) | DRG 190 ==
LOC: EDH 09:16 → EDHIP 11:38 → OBSVTOIN 11:38 → 2DH 15:54 → 4BH 04-10 20:09
PROVIDERS: ADMIT Internal Medicine Critical Care Medicine; ATTEND Internal Medicine Critical Care Medicine
PROC: 0W993ZZ Drainage of Right Pleural Cavity, Percutaneous Approach (ICD-10-PCS; principal; 2020-04-11)
DX: J44.1 Chronic obstructive pulmonary disease with (acute) exacerbation (principal); I50.43 Acute on chronic combined systolic (congestive) and diastolic (congestive) heart failure; R64 Cachexia; Z68.1 Body mass index [BMI] 19.9 or less, adult; J91.8 Pleural effusion in other conditions classified elsewhere; I50.40 Unspecified combined systolic (congestive) and diastolic (congestive) heart failure; E03.9 Hypothyroidism, unspecified; E83.42 Hypomagnesemia; E87.6 Hypokalemia; F01.50 Vascular dementia, unspecified severity, without behavioral disturbance, psychotic disturbance, mood disturbance, and anxiety; G83.14 Monoplegia of lower limb affecting left nondominant side; I25.10 Atherosclerotic heart disease of native coronary artery without angina pectoris; I44.0 Atrioventricular block, first degree; Z79.01 Long term (current) use of anticoagulants; Z79.899 Other long term (current) drug therapy; Z86.73 Personal history of transient ischemic attack (TIA), and cerebral infarction without residual deficits; Z99.3 Dependence on wheelchair; Z87.891 Personal history of nicotine dependence; I73.9 Peripheral vascular disease, unspecified; R53.81 Other malaise; Z03.818 Encounter for observation for suspected exposure to other biological agents ruled out
CPT/HCPCS: 32555; 36415; 71045; 80048; 80053; 82550; 83605; 83615; 83874; 83880; 84132; 84145; 84155; 84484; 85025; 85027; 85610; 85730; 87040; 87486; 87581; 87633; 87635; 87798; 87804; 93005; 99291; G0378; J1940; J3480; J3490

== ENCOUNTER → 2020-04-25 | Outpatient (CLI) | payer OTHER, MEDICARE ==
[~2020-04-25] MED LIST changes: +AMIO200T5 PO; -AMIO400T4 PO; +FURO20TA6 PO; -FURO40TA7 PO; -LISI-613 PO; +LISI-617 PO
--- NOTE | 2020-04-25 09:00 | NUR ---
U/S GUIDED RIGHT THORACENTESIS PROCEDURE PERFORMED BY DR. HSU. PUNCTURE SITE RIGHT POSTERIOR BACK AND PATIENT TOLERATED PROCEDURE WELL. TOTAL REMOVED 2.0 LITERS OF CLOUDY YELLOW PLEURAL FLUID. END OF PROCEDURE AT 0915. CATHETER REMOVED AND DRESSING APPLIED. NO BLEEDING NOTED. POST CHEST X-RAY TAKEN AT AND READ BY DR. Bella CRUZ. NEGATIVE FOR PNEUMOTHORAX SEEN. DISCHARGE INSTRUCTIONS GIVEN TO PATIENT AND VERBALIZED UNDERSTANDING. DISCHARGED VIA W/C AT 0940. PT STABLE, AAO X3 WITH NO C/O PAIN.
== END ==
LOC: RAH 08:03
PROVIDERS: ATTEND Family Medicine
DX: J90 Pleural effusion, not elsewhere classified (principal); J98.11 Atelectasis; I13.0 Hypertensive heart and chronic kidney disease with heart failure and stage 1 through stage 4 chronic kidney disease, or unspecified chronic kidney disease; N18.9 Chronic kidney disease, unspecified; I50.41 Acute combined systolic (congestive) and diastolic (congestive) heart failure; I44.0 Atrioventricular block, first degree; Z90.49 Acquired absence of other specified parts of digestive tract; Z86.73 Personal history of transient ischemic attack (TIA), and cerebral infarction without residual deficits; Z79.899 Other long term (current) drug therapy; Z79.890 Hormone replacement therapy; Z79.01 Long term (current) use of anticoagulants; Z98.890 Other specified postprocedural states; Z87.891 Personal history of nicotine dependence; Z83.3 Family history of diabetes mellitus; Z87.01 Personal history of pneumonia (recurrent)
CPT/HCPCS: 32555; 71045; A4215

== ENCOUNTER → 2020-05-01 | Outpatient (CLI) | payer OTHER, MEDICARE ==
--- NOTE | 2020-05-01 11:28 | NUR ---
U/S GUIDED RIGHT THORACENTESIS PROCEDURE PERFORMED BY DR. CRUZ. PUNCTURE SITE RIGHT POSTERIOR BACK AND PATIENT TOLERATED PROCEDURE WELL. TOTAL REMOVED 1900CC OF CLOUDY YELLOW PLEURAL FLUID. END OF PROCEDURE AT 0930. CATHETER REMOVED AND DRESSING APPLIED. NO BLEEDING NOTED. POST CHEST X-RAY TAKEN AND READ BY DR. Bella CRUZ. DISCHARGE INSTRUCTIONS GIVEN TO PATIENT AND VERBALIZED UNDERSTANDING. DISCHARGED VIA W/C AT 1000. PT STABLE, AAO X3 WITH NO C/O PAIN.
== END ==
LOC: RAH 08:20
PROVIDERS: ATTEND Family Medicine
DX: J90 Pleural effusion, not elsewhere classified (principal); I13.0 Hypertensive heart and chronic kidney disease with heart failure and stage 1 through stage 4 chronic kidney disease, or unspecified chronic kidney disease; I50.41 Acute combined systolic (congestive) and diastolic (congestive) heart failure; N18.9 Chronic kidney disease, unspecified; Z79.899 Other long term (current) drug therapy; Z86.73 Personal history of transient ischemic attack (TIA), and cerebral infarction without residual deficits; Z90.49 Acquired absence of other specified parts of digestive tract; Z98.890 Other specified postprocedural states; Z79.890 Hormone replacement therapy; Z87.891 Personal history of nicotine dependence; Z83.3 Family history of diabetes mellitus; Z87.01 Personal history of pneumonia (recurrent); Z86.718 Personal history of other venous thrombosis and embolism
CPT/HCPCS: 32555; 71045; A4215

== ENCOUNTER 2020-05-04 09:43 | Observation (INO) | payer OTHER, MEDICARE ==
[~2020-05-04] VITALS: Ht 177.8 cm; Wt 81.7 kg
[2020-05-04] MEDS ORDERED: METHYLPREDNISOLONE SOD SUCC 125MG/2ML VIAL ONE (11:14)
[2020-05-04] MEDS ORDERED: CEFTRIAXONE SODIUM 2 GM VIAL ONE (11:14)
[2020-05-04] MEDS ORDERED: ALBUTEROL INHALER 90MCG/INH IH ONE (11:14)
[2020-05-04] MEDS ORDERED: FUROSEMIDE 10 MG/ML 4ML VIAL ONE (13:25)
[2020-05-04] MEDS ORDERED: GLUCAGON 1MG KIT 1 MG ML IM PRN (15:30)
[2020-05-04] MEDS ORDERED: DEXTROSE 50%-WATER 50 ML DISP.SYRIN IV PRN (15:30)
[2020-05-04] MEDS ORDERED: ACETAMINOPHEN 325 MG TAB PO PRN (15:30)
[2020-05-04] MEDS ORDERED: ONDANSETRON HCL 4 MG/2 ML VIAL IVP PRN (15:30)
[2020-05-04] MEDS ORDERED: ENOXAPARIN SODIUM 40 MG/0.4 ML SYRINGE SQ SCH (15:30)
[2020-05-04] MEDS ORDERED: HYDRALAZINE HCL 20 MG/ML VIAL IV PRN (15:30)
[2020-05-04] MEDS ORDERED: INSULIN R PO SS1 SQ SCH (16:30)
--- NOTE | 2020-05-05 11:30 | NUR ---
RE: RT THORACENTESIS DR Bella CRUZ NOTIFIED OF REQUEST AND REVIEWED IMAGES. STATES CHEST X-RAY OF 05/04/20 DOES NOT SHOW EFFUSION AND NEED TO REPEAT CHEST XRAY FOR EVALUATION. ALSO, PATIENT ALREADY HAD A RT SIDED THORACENTESIS PERFORMED 05/01/20 WITH 2 LITERS REMOVED. PROCEDURE OUTCOME REPORTED TO JOSE ANGEL RAMIREZ
--- NOTE | 2020-05-05 17:08 | NUR ---
CM SPOKE TO PATIENT'S DAUGHTER ON THE PHONE PT LIVES WITH SPOUSE WITH SUPPORT FROM GROWN CHILDREN. SAFE ACCESSIBLE HOME, ALFONSO GREGORIO, PROVIDER 37 HRS, [place], DANICA PINK NURSES THROUGH [facility] TODAY Addendum: 05/05/20 at 1714 by EMI AMAYA RN CM Amended: Links added.
== END 2020-05-05 16:00 | disposition home or self-care (01) ==
LOC: EDH 09:43 → EDHIP 15:00
PROVIDERS: ADMIT Internal Medicine Pulmonary Disease; ATTEND Internal Medicine Pulmonary Disease
DX: U07.1 COVID-19 (principal); J44.9 Chronic obstructive pulmonary disease, unspecified; I11.0 Hypertensive heart disease with heart failure; I50.23 Acute on chronic systolic (congestive) heart failure; I48.91 Unspecified atrial fibrillation; N40.0 Benign prostatic hyperplasia without lower urinary tract symptoms; F03.90 Unspecified dementia, unspecified severity, without behavioral disturbance, psychotic disturbance, mood disturbance, and anxiety; E03.9 Hypothyroidism, unspecified; E78.5 Hyperlipidemia, unspecified; Z79.01 Long term (current) use of anticoagulants; Z87.891 Personal history of nicotine dependence; Z90.49 Acquired absence of other specified parts of digestive tract; Z86.73 Personal history of transient ischemic attack (TIA), and cerebral infarction without residual deficits
CPT/HCPCS: 36415 ×2; 71045; 80048; 80053; 82948 ×2; 83605 ×2; 83880; 84484; 85025 ×2; 85610 ×2; 85730 ×2; 87040 ×2; 93005; 99291; G0378 ×10; J0696; J1940; J2930; U0003